=== PATIENT | male | born 1980 | race Caucasian/White ===

== ENCOUNTER 2017-07-17 12:40 | Emergency (ER) | payer BC ==
[2017-07-17 12:51] VITALS: BP 133/82
[2017-07-17] MEDS ORDERED: diphenhydrAMINE 50 MG Cap PO ONE (13:17)
[2017-07-17] MEDS ORDERED: Famotidine 20 MG Tab PO ONE (13:17)
[2017-07-17] MEDS ORDERED: predniSONE 20 MG Tab PO ONE (13:17)
--- NOTE | 2017-07-17 15:22 | CT ---
CT facial Technique: Multiple axial sections were obtained from below the mandible superiorly to above the frontal sinuses. Reconstructed coronal and sagittal images were obtained. Intravenous contrast not utilized. Findings: Mild mucosal thickening is seen within the right maxillary sinus as well as left maxillary sinus. Surgical plate is seen along the inferior orbital wall on the left side. Slight mucosal thickening is seen within the frontal and ethmoid sinuses. No air-fluid levels are seen. Haziness within the right parotid salivary gland is seen. No parotid duct stone is identified. No parotid mass is seen. Submandibular salivary glands are within normal limits. Small normal-appearing lymph nodes are seen. No adenopathy is identified. Impression: 1. Slight increased density within the right parotid salivary gland most likely representing minimal inflammatory change. No salivary duct stone is seen. 2. Minimal areas of mucosal thickening within the sinuses as noted above is which are felt to be incidental. 3. Surgical plate within the inferior left orbit. Diagnostic code #2
--- NOTE | 2017-07-17 15:48 | EDM.PDOC ---
ED HPI GENERAL MEDICAL PROBLEM - General Chief Complaint: ENT Problem Stated Complaint: FACIAL SWELLING POSSIBLE ALLERGIC REACTION Time Seen by Provider: 07/17/17 12:51 Source of Information: Reports: Patient History Limitations: Reports: No Limitations - History of Present Illness INITIAL COMMENTS - FREE TEXT/NARRATIVE: The patient presents with right facial swelling and pain. The patient was just eating a peanut butter sandwich and developed edema and pain to the right parotid gland and in his mouth. He has no shortness of breath or swallowing. He has never had anything like this happen before. He has never reacted to any food before. He developed no rash. He has no chest pain. Onset: Sudden Duration: Minutes: Location: Reports: Face Quality: Reports: Sharp Severity: Moderate Improves with: Reports: None Worsens with: Reports: None Context: Reports: Activity (He was eating a peanut better and jelly sandwich) Associated Symptoms: Reports: No Other Symptoms Right Lower Oral/Mouth Pain Score (Numeric/FACES): 2 - Related Data Allergies Allergy/AdvReac Type Severity Reaction Status Date / Time No Known Allergies Allergy Verified 12/14/16 08:45 Home Meds: Home Meds Albuterol Sulfate [Ventolin Hfa] 2 puff IH Q4H PRN 12/14/16 [History] Esomeprazole Magnesium [Nexium 24Hr] 40 mg PO DAILY 12/14/16 [History] Amoxicillin/Clavulanate K [Augmentin 875 MG/125 MG] 1 tab PO Q12HR #20 tablet [Rx] Past Medical History Respiratory History: Reports: Asthma Gastrointestinal History: Reports: GERD Musculoskeletal History: Reports: Back Pain, Chronic - Past Surgical History HEENT Surgical History: Reports: Eye Surgery GI Surgical History: Reports: Appendectomy Social & Family History - Family History Family Medical History: Noncontributory - Tobacco Use Smoking Status *Q: Never Smoker Years of Tobacco use: 1 Packs/Tins Daily: 0.5 Second Hand Smoke Exposure: No - Caffeine Use Caffeine Use: Reports: Soda - Recreational Drug Use Recreational Drug Use: No ED ROS ENT - Review of Systems Review Of Systems: See Below Constitutional: Reports: No Symptoms HEENT: Reports: Other (Right parotid gland edema) Respiratory: Reports: No Symptoms Cardiovascular: Reports: No Symptoms Endocrine: Reports: No Symptoms GI/Abdominal: Reports: No Symptoms : Reports: No Symptoms Musculoskeletal: Reports: No Symptoms Skin: Reports: No Symptoms ED EXAM, ENT - Physical Exam Exam: See Below Exam Limited By: No Limitations General Appearance: Alert, No Apparent Distress Ears: Normal External Exam Nose: Normal Inspection Mouth/Throat: Other (Edema to the right parotid gland. No erythema. Chaitanya and pain to the right parotid gland.) Head: Atraumatic, Normocephalic Neck: Normal Inspection, Non-Tender Respiratory/Chest: No Respiratory Distress, Lungs Clear, Normal Breath Sounds Cardiovascular: Regular Rate, Rhythm, No Edema, No Murmur GI/Abdominal: Soft, Non-Tender, No Organomegaly, No Mass Back: Normal Inspection Extremities: Normal Inspection Course - Vital Signs Last Recorded V/S: Last Vital Signs Temp 97.5 F 07/17/17 12:47 Pulse 86 07/17/17 12:47 Resp 14 07/17/17 12:47 BP 133/82 07/17/17 12:47 Pulse Ox 98 07/17/17 12:47 - Orders/Labs/Meds Orders: Active Orders 24 hr Category Date Time Status Mandible Comp Min 4V [CR] Stat Exams 07/17/17 13:18 Taken Meds: Medications Discontinued Medications Generic Name Dose Route Start Last Admin Trade Name Freq PRN Reason Stop Dose Admin Diphenhydramine HCl 50 mg 07/17/17 13:17 07/17/17 13:26 Benadryl PO 07/17/17 13:18 50 mg ONETIME ONE Administration Famotidine 20 mg 07/17/17 13:17 07/17/17 13:27 Pepcid PO 07/17/17 13:18 20 mg ONETIME ONE Administration Prednisone 40 mg 07/17/17 13:17 07/17/17 13:26 Prednisone PO 07/17/17 13:18 40 mg ONETIME ONE Administration - Re-Assessments/Exams Free Text/Narrative Re-Assessment/Exam: 07/17/17 15:49 I ordered prednisone 40mg, benadryl 50mg and pepcid 20mg by mouth. I ordered an x-ray of his mandible to look for a stone. I am worried about an allergic reaction or sialoliths. This happened so fast. I ordered a CT of his maxilofacial area and it showed no stone but he had some inflammation of the parotid gland. I will get him on some augmentin for a few days. Departure - Departure Time of Disposition: 15:55 Disposition: Home, Self-Care 01 Condition: Good Clinical Impression: Parotiditis - Discharge Information Prescriptions: Amoxicillin/Clavulanate K [Augmentin 875 MG/125 MG] 1 tab PO Q12HR #20 tablet Referrals: Emilie Anguiano PA [Physician Acid Retort Operator] - 1 Week Additional Instructions: Take the augmentin 2 times per day for 10 days. Put warm compresses on your parotid gland 2 to 3 times per day. Take lemon drops a couple times per day. Take a probiotic like yogurt to avoid diarrhea you may get from taking the antibiotic. Avoid peanut butter for a few days. Please return if you are worse. - My Orders Last 24 Hours: My Active Orders 07/17/17 13:18 Mandible Comp Min 4V [CR] Stat - Assessment/Plan Last 24 Hours: My Active Orders 07/17/17 13:18 Mandible Comp Min 4V [CR] Stat
--- NOTE | 2017-07-18 08:33 | CR ---
Mandible: Five views of the mandible were obtained. No discrete fracture or other bony abnormality is seen. Orbital plate is noted on the left side. Impression: 1. Incidental finding. Diagnostic code #2
== END 2017-07-17 16:08 | disposition home or self-care (01) ==
LOC: JD.ED 12:40
DX: K11.20 Sialoadenitis, unspecified (principal); J45.909 Unspecified asthma, uncomplicated; K21.9 Gastro-esophageal reflux disease without esophagitis; Z90.49 Acquired absence of other specified parts of digestive tract; Z79.899 Other long term (current) drug therapy
CPT/HCPCS: 70110; 70486; 99283; A9270

== ENCOUNTER 2019-01-30 21:46 | Emergency (ER) | payer BC ==
[2019-01-30 22:14] VITALS: BP 130/92
[2019-01-30] MEDS ORDERED: Ketorolac 30 MG/ML SDV IVPUSH ONE (23:33)
[2019-01-30] MEDS ORDERED: HYDROmorphone 1 MG/ML Syringe IVPUSH ONE (23:34)
--- NOTE | 2019-01-30 23:39 | EDM.PDOC ---
ED HPI GENERAL MEDICAL PROBLEM - General Chief Complaint: Chest Pain Stated Complaint: LEFT LOWER RIB CAGE PAIN Time Seen by Provider: 01/30/19 22:12 Source of Information: Reports: Patient History Limitations: Reports: No Limitations - History of Present Illness INITIAL COMMENTS - FREE TEXT/NARRATIVE: The patient presents with left lower chest pain. This started yesterday but over the past few hours it has gotten much worse. He has no shortness of breath with it but it hurts worse to take a deep breath. He has no fever, chills or cough. He was at work when this started. He did not lift or fall or hurt his chest. He does not smoke. He has no history of hypertension, hypercholesterolemia or diabetes. His dad of an enlarged heart at 51. Onset: Gradual Duration: Day(s): Location: Reports: Chest Quality: Reports: Sharp Severity: Moderate Improves with: Reports: Immobilization Worsens with: Reports: Breathing Associated Symptoms: Reports: Chest Pain. Denies: Cough, Fever/Chills, Headaches, Nausea/Vomiting, Shortness of Breath Left Chest Pain Score (Numeric/FACES): 8 - Related Data Allergies Allergy/AdvReac Type Severity Reaction Status Date / Time No Known Allergies Allergy Verified 01/30/19 22:05 Home Meds: Home Meds Albuterol Sulfate [Ventolin Hfa] 2 puff IH Q4H PRN 12/14/16 [History] Esomeprazole Magnesium [Nexium 24Hr] 40 mg PO DAILY 12/14/16 [History] Hydrocodone/Acetaminophen [Hydrocodon-Acetaminophen 5-325] 1 - 2 each PO Q6HR PRN #10 tablet 01/30/19 [Rx] Past Medical History Respiratory History: Reports: Asthma Gastrointestinal History: Reports: GERD Musculoskeletal History: Reports: Back Pain, Chronic - Past Surgical History HEENT Surgical History: Reports: Eye Surgery GI Surgical History: Reports: Appendectomy Social & Family History - Family History Family Medical History: Noncontributory - Tobacco Use Smoking Status *Q: Never Smoker - Caffeine Use Caffeine Use: Reports: None - Recreational Drug Use Recreational Drug Use: No ED ROS GENERAL - Review of Systems Review Of Systems: See Below Constitutional: Reports: No Symptoms HEENT: Reports: No Symptoms Respiratory: Reports: No Symptoms Cardiovascular: Reports: Chest Pain Endocrine: Reports: No Symptoms GI/Abdominal: Reports: No Symptoms : Reports: No Symptoms Musculoskeletal: Reports: No Symptoms ED EXAM, GENERAL - Physical Exam Exam: See Below Exam Limited By: No Limitations General Appearance: Alert, No Apparent Distress Ears: Normal External Exam Nose: Normal Inspection Head: Atraumatic, Normocephalic Neck: Normal Inspection Respiratory/Chest: No Respiratory Distress, Lungs Clear, Normal Breath Sounds Cardiovascular: Regular Rate, Rhythm, No Edema, No Murmur, Other (Pain upon palpation to the left lower chest) GI/Abdominal: Soft, Non-Tender, No Organomegaly, No Mass Extremities: Normal Inspection Neurological: Alert, Oriented, No Motor/Sensory Deficits EKG INTERPRETATION EKG Date: 01/30/19 Time: 22:12 Rhythm: NSR Rate (Beats/Min): 79 [place] [facility]: Normal P-Wave: Present QRS: Normal ST-T: Other (Flattened T waves in the anteriolateral leads) QT: Normal Course - Vital Signs Last Recorded V/S: Last Vital Signs Temp 97.4 F 01/30/19 22:07 Pulse 82 01/30/19 22:07 Resp 20 01/30/19 22:07 BP 130/92 H 01/30/19 22:07 Pulse Ox 98 01/30/19 22:07 - Orders/Labs/Meds Orders: Active Orders 24 hr Category Date Time Status EKG Documentation Completion [RC] STAT Care 01/30/19 22:10 Active Chest 2V [CR] Stat Exams 01/30/19 22:10 Taken HYDROmorphone [Dilaudid] Med 01/30/19 23:34 Once 0.5 mg IVPUSH ONETIME ONE Ketorolac [Toradol] Med 01/30/19 23:33 Once 30 mg IVPUSH ONETIME ONE Medication Orders Hydromorphone HCl (Dilaudid) 0.5 mg IVPUSH ONETIME ONE Stop: 01/30/19 23:35 Ketorolac Tromethamine (Toradol) 30 mg IVPUSH ONETIME ONE Stop: 01/30/19 23:34 Labs: Laboratory Tests 01/30/19 01/30/19 01/30/19 Range/Units 22:29 22:29 22:29 WBC 12.12 H (4.23-9.07) K/mm3 RBC 5.45 (4.63-6.08) M/mm3 Hgb 14.9 (13.7-17.5) gm/L Hct 44.3 (40.1-51.0) % MCV 81.3 (79.0-92.2) fl MCH 27.3 (25.7-32.2) pg MCHC 33.6 (32.2-35.5) g/dl RDW Std Deviation 39.8 (35.1-43.9) fL Plt Count 255 (163-337) K/mm3 MPV 11.7 (9.4-12.3) fl Neut % (Auto) 61.7 (34.0-67.9) % Lymph % (Auto) 26.5 (21.8-53.1) % Barren % (Auto) 8.7 (5.3-12.2) % Eos % (Auto) 2.6 (0.8-7.0) Baso % (Auto) 0.3 (0.1-1.2) % Neut # (Auto) 7.49 H (1.78-5.38) K/mm3 Lymph # (Auto) 3.21 (1.32-3.57) K/mm3 Barren # (Auto) 1.05 H (0.30-0.82) K/mm3 Eos # (Auto) 0.31 (0.04-0.54) K/mm3 Baso # (Auto) 0.04 (0.01-0.08) K/mm3 D-Dimer, Quantitative 0.23 (0.19-0.50) mg/L Sodium 140 (136-145) mEq/L Potassium 3.7 (3.5-5.1) mEq/L Chloride 104 (98-107) mEq/L Carbon Dioxide 28 (21-32) mEq/L Anion Gap 11.7 (5-15) BUN 12 (7-18) mg/dL Creatinine 1.0 (0.7-1.3) mg/dL Est Cr Clr Drug Dosing 102.40 mL/min Estimated GFR (MDRD) > 60 (>60) mL/min BUN/Creatinine Ratio 12.0 L (14-18) Glucose 107 H (74-106) mg/dL Calcium 9.2 (8.5-10.1) mg/dL Total Bilirubin 0.3 (0.2-1.0) mg/dL AST 19 (15-37) U/L ALT 54 (16-63) U/L Alkaline Phosphatase 85 (46-116) U/L Troponin I < 0.017 (0.00-0.056) ng/mL Total Protein 7.5 (6.4-8.2) g/dl Albumin 3.8 (3.4-5.0) g/dl Globulin 3.7 gm/dL Albumin/Globulin Ratio 1.0 (1-2) Meds: Medications Generic Name Dose Route Start Last Admin Trade Name Rachel PRN Reason Stop Dose Admin Hydromorphone HCl 0.5 mg 01/30/19 23:34 Dilaudid IVPUSH 01/30/19 23:35 ONETIME ONE Ketorolac Tromethamine 30 mg 01/30/19 23:33 Toradol IVPUSH 01/30/19 23:34 ONETIME ONE - Re-Assessments/Exams Free Text/Narrative Re-Assessment/Exam: 01/30/19 23:38 I ordered an IV saline lock, EKG, CXR, and labs. His EKG shows a NSR with some flattened T waves in the anterolateral leads. His CXR looks good. His CBC and CMP look good. His D-dimer was negative along with his troponin. 01/30/19 23:39 He is point tender on his chest. I gave him some toradol and dilaudid. I will discharge him home. Departure - Departure Time of Disposition: 23:40 Disposition: Home, Self-Care 01 Condition: Good Clinical Impression: Chest wall pain Prescriptions: Hydrocodone/Acetaminophen [Hydrocodon-Acetaminophen 5-325] 1 - 2 each PO Q6HR PRN #10 tablet PRN Reason: Pain Referrals: PCP,None [Primary Care Provider] - July Baugh PA-C [Physician Chief Executive Officer] - 1 Week Additional Instructions: Take motrin or aleve for pain. If that does not help try the hydrocodone. Please return if you are worse. - My Orders Last 24 Hours: My Active Orders 01/30/19 23:33 Ketorolac [Toradol] 30 mg IVPUSH ONETIME ONE 01/30/19 23:34 HYDROmorphone [Dilaudid] 0.5 mg IVPUSH ONETIME ONE - Assessment/Plan Last 24 Hours: My Active Orders 01/30/19 23:33 Ketorolac [Toradol] 30 mg IVPUSH ONETIME ONE 01/30/19 23:34 HYDROmorphone [Dilaudid] 0.5 mg IVPUSH ONETIME ONE
--- NOTE | 2019-01-31 06:55 | CR ---
Chest: Two views of the chest were obtained. Comparison: Prior chest x-ray is not available. Heart size and mediastinum are normal. Lungs are clear. Bony structures appear within normal limits for the patient's age. Impression: 1. Nothing acute is seen on two-view chest x-ray. Diagnostic code #1
== END 2019-01-30 23:53 | disposition home or self-care (01) ==
LOC: JD.ED 21:46
DX: R07.89 Other chest pain (principal); J45.909 Unspecified asthma, uncomplicated; K21.9 Gastro-esophageal reflux disease without esophagitis; Z79.899 Other long term (current) drug therapy
CPT/HCPCS: 36415; 71046; 80053; 84484; 85025; 85379; 93005; 96374; 96375; 99285; J1170; J1885; 93010; 99284

== ENCOUNTER 2019-10-19 21:43 | Emergency (ER) | payer BC ==
[2019-10-19 21:53] VITALS: BP 137/86; PULSE 104
[2019-10-19] MEDS ORDERED: Sodium Chloride 0.9% 1,000 ML IV ONE (22:34)
--- NOTE | 2019-10-19 22:45 | EDM.PDOC ---
ED HPI GENERAL MEDICAL PROBLEM - General Chief Complaint: Eye Problems Stated Complaint: EYE PROBLEM Time Seen by Provider: 10/19/19 22:24 Source of Information: Reports: Patient, RN Notes Reviewed History Limitations: Reports: No Limitations - History of Present Illness INITIAL COMMENTS - FREE TEXT/NARRATIVE: Patient is a 39-year-old male who presents to the ED for evaluation of a chemical splash into his right eye. Patient notes that roughly 1 hour ago he got some chemical splash into his right eye while he was cleaning the ceiling in his shop at home. This chemical is a mold cleaner called awesome, he did bring the bottle with him for evaluation. He notes that he did rinse his eye out for around 20 minutes with tap water, but states he was still having a burning feeling to the right eye, and he is unable to keep the eye open much at all. Patient notes he does not wear contacts nor glasses. Right Eye Pain Score (Numeric/FACES): 8 - Related Data Allergies Allergy/AdvReac Type Severity Reaction Status Date / Time No Known Allergies Allergy Verified 10/19/19 21:49 Home Meds: Home Meds Esomeprazole Magnesium [Nexium 24Hr] 40 mg PO DAILY 12/14/16 [History] Albuterol [Proventil HFA] 2 puff INH Q4H PRN #1 inhaler 01/31/19 [Rx] Albuterol Sulfate [Proair Hfa] 8.5 gm IH QID #1 hfa.[email or web address].[email or web address] 10/19/19 [Rx] Past Medical History Respiratory History: Reports: Asthma Gastrointestinal History: Reports: GERD Musculoskeletal History: Reports: Back Pain, Chronic - Past Surgical History HEENT Surgical History: Reports: Eye Surgery GI Surgical History: Reports: Appendectomy Social & Family History - Family History Family Medical History: Noncontributory - Tobacco Use Smoking Status *Q: Never Smoker - Caffeine Use Caffeine Use: Reports: None ED ROS GENERAL - Review of Systems Review Of Systems: Comprehensive ROS is negative, except as noted in HPI. HEENT: Reports: Eye Pain. Denies: Eye Discharge ED EXAM GENERAL W FULL EYE - Physical Exam Exam: See Below Exam Limited By: No Limitations General Appearance: Alert, WD/WN, No Apparent Distress Eye Exam: Right Eye: Conjunctival Injection, Left Eye: Normal Inspection, Bilateral Eye: EOMI, PERRL With Correction: No Eyelids: Bilateral: Normal Appearance Conjunctiva & Sclera: Right: Injected, Left: Normal Appearance Cornea Exam: Right: Corneal Abrasion (to the inner lower half of the eye.), Examined with Flourescein, Left: Normal Appearance Extraocular Movements: Bilateral: Intact Pupils: Normal Accommodation Pupillary Size: Bilateral: 3 mm Pupillary Reaction: Bilateral: Brisk Comments: eye pH was taken before irrigation was started. This was between 7-8. Respiratory/Chest: No Respiratory Distress, Lungs Clear, Normal Breath Sounds, No Accessory Muscle Use, Chest Non-Tender Cardiovascular: Normal Peripheral Pulses, Regular Rate, Rhythm, No Murmur Neurological: Alert, Oriented, Normal Cognition, No Motor/Sensory Deficits Psychiatric: Normal Affect, Normal Mood Skin Exam: Warm, Dry, Intact, Normal Color, No Rash Course - Vital Signs Last Recorded V/S: Last Vital Signs Temp 98.0 F 10/19/19 21:50 Pulse 104 H 10/19/19 21:50 Resp 16 10/19/19 21:50 BP 137/86 10/19/19 21:50 Pulse Ox 97 10/19/19 21:50 - Orders/Labs/Meds Orders: Active Orders 24 hr Category Date Time Status Eye Irrigation [RC] ASDIRECTED Care 10/19/19 22:33 Ordered Sodium Chloride 0.9% [Normal Saline] 1,000 ml Med 10/19/19 22:34 Ordered IV ONETIME Medication Orders Sodium Chloride (Normal Saline) 1,000 mls @ 999 mls/hr IV ONETIME ONE Stop: 10/19/19 23:34 Meds: Medications Generic Name Dose Route Start Last Admin Trade Name Freq PRN Reason Stop Dose Admin Sodium Chloride 1,000 mls @ 999 mls/hr 10/19/19 22:34 Normal Saline IV 10/19/19 23:34 ONETIME ONE Discontinued Medications Generic Name Dose Route Start Last Admin Trade Name Freq PRN Reason Stop Dose Admin Ciprofloxacin 1 ml 10/19/19 22:59 Ciloxan 0.3% Ophth Soln EYERT 10/19/19 23:00 Q4H ONE Fluorescein Sodium 1 mg 10/19/19 22:54 Ful-Sarah EYERT 10/19/19 22:55 ONETIME ONE - Re-Assessments/Exams Free Text/Narrative Re-Assessment/Exam: 10/19/19 22:44 Patient presents to the ED for evaluation of a chemical splash to his right eye. The chemical he brought with him contains 2 Butoxy ethanol. I did call poison control, and they did recommend flushing the eye with a liter of fluids, doing a fluorescein exam to evaluate for corneal abrasion, and sending him home with antibiotics if needed and close follow-up with optometry. 10/19/19 22:53 Nurse states that the patient only let her irrigate with 100mLs of fluid before he had her stop. I will examine with flourescein for abrasions. Departure - Departure Time of Disposition: 23:13 Disposition: Home, Self-Care 01 Condition: Fair Clinical Impression: Chemical burn due to acid, conjunctiva, right Corneal abrasion Qualifiers: Encounter type: initial encounter Laterality: right Qualified Code(s): S05.01XA - Injury of conjunctiva and corneal abrasion without foreign body, right eye, initial encounter - Discharge Information *PRESCRIPTION DRUG MONITORING PROGRAM REVIEWED*: No *COPY OF PRESCRIPTION DRUG MONITORING REPORT IN PATIENT NUNU: No Instructions: Chemical Conjunctivitis, Adult, Corneal Abrasion, [id number] Referrals: PCP,None [Primary Care Provider] - Forms: ED Department Discharge Additional Instructions: You were evaluated in the ER today regarding the chemical splash in your right eye. Irrigation was attempted, but was stopped shortly after it was started. Your pH was back to normal. You were found to have corneal abrasions as well, please use the ciprofloxacin drops, 1 to 2 drops every 4 hours for the next few days. Recommend that you have a close follow-up with optometry on Monday morning. This would be to reevaluate your eyes, and make sure you do not have any sort of visual loss. You may take some ibuprofen or Tylenol for further pain relief. Please return to the ER if symptoms change or worsen. Sepsis Event Note - Evaluation Sepsis Screening Result: No Definite Risk - Focused Exam Vital Signs: Vital Signs Temp Pulse Resp BP Pulse Ox 10/19/19 21:50 98.0 F 104 H 16 137/86 97 Date Exam was Performed: 10/19/19 Time Exam was Performed: 23:13 - My Orders Last 24 Hours: My Active Orders 10/19/19 22:33 Eye Irrigation [RC] ASDIRECTED 10/19/19 22:34 Sodium Chloride 0.9% [Normal Saline] 1,000 ml IV ONETIME - Assessment/Plan Last 24 Hours: My Active Orders 10/19/19 22:33 Eye Irrigation [RC] ASDIRECTED 10/19/19 22:34 Sodium Chloride 0.9% [Normal Saline] 1,000 ml IV ONETIME
[2019-10-19] MEDS ORDERED: Fluorescein 1 MG Ophth Strip EYERT ONE (22:54)
[2019-10-19] MEDS ORDERED: Ciprofloxacin 0.3% Ophth Soln 5 ML Bottle EYERT ONE (22:59)
== END 2019-10-19 23:24 | disposition home or self-care (01) ==
LOC: JD.ED 21:43
DX: T65.891A Toxic effect of other specified substances, accidental (unintentional), initial encounter (principal); T26.61XA Corrosion of cornea and conjunctival sac, right eye, initial encounter; S05.01XA Injury of conjunctiva and corneal abrasion without foreign body, right eye, initial encounter; J45.909 Unspecified asthma, uncomplicated; Z79.899 Other long term (current) drug therapy; Y93.E9 Activity, other interior property and clothing maintenance; Y92.513 Shop (commercial) as the place of occurrence of the external cause
CPT/HCPCS: 99283; A9270; J7030

== ENCOUNTER 2019-12-01 10:41 | Emergency (ER) | payer BC ==
[2019-12-01 10:59] VITALS: BP 129/86; PULSE 71
[2019-12-01] MEDS ORDERED: Sodium Chloride 0.9% 10 ML Syringe FLUSH PRN (11:04)
[2019-12-01] MEDS ORDERED: Ketorolac 30 MG/ML SDV IVPUSH ONE (11:04)
[2019-12-01] MEDS ORDERED: Sodium Chloride 0.9% 1,000 ML IV ONE (11:05)
--- NOTE | 2019-12-01 11:09 | EDM.PDOC ---
ED HPI GENERAL MEDICAL PROBLEM - General Chief Complaint: Back Pain or Injury Stated Complaint: BACK PAIN AND DIFFICULTY URINATING Time Seen by Provider: 12/01/19 10:58 Source of Information: Reports: Patient History Limitations: Reports: No Limitations - History of Present Illness INITIAL COMMENTS - FREE TEXT/NARRATIVE: Patient is an unfortunate 39-year-old male who presents emergency Department today with complaint of left low back pain. Patient reports she was in his normal state of health until approximately 30 minutes prior to arrival when he started having sharp stabbing low left back pain that radiates left lower quadrant of his abdomen. Patient reports this pain is similar to previous episodes of kidney stones. No nausea no vomiting no fever no chills no chest pain no cough no congestion no runny nose Left Lower Back Pain Score (Numeric/FACES): 7 - Related Data Allergies Allergy/AdvReac Type Severity Reaction Status Date / Time No Known Allergies Allergy Verified 12/01/19 10:59 Home Meds: Home Meds Esomeprazole Magnesium [Nexium 24Hr] 40 mg PO DAILY 12/14/16 [History] Albuterol [Proventil HFA] 2 puff INH Q4H PRN #1 inhaler 01/31/19 [Rx] Acetaminophen with Codeine [Tylenol with Codeine #3 Tablet] 1 each PO Q4H PRN # 20 tablet 12/01/19 [Rx] Past Medical History Respiratory History: Reports: Asthma Gastrointestinal History: Reports: GERD Musculoskeletal History: Reports: Back Pain, Chronic - Past Surgical History HEENT Surgical History: Reports: Eye Surgery GI Surgical History: Reports: Appendectomy Social & Family History - Family History Family Medical History: Noncontributory - Tobacco Use Smoking Status *Q: Never Smoker - Caffeine Use Caffeine Use: Reports: Soda - Recreational Drug Use Recreational Drug Use: No ED ROS GENERAL - Review of Systems Review Of Systems: See Below Constitutional: Denies: Fever, Chills GI/Abdominal: Reports: Abdominal Pain. Denies: Hematochezia, Nausea, Vomiting Musculoskeletal: Reports: Back Pain ED EXAM,LOWER BACK PAIN/INJURY - Physical Exam Exam: See Below Exam Limited By: No Limitations General Appearance: Alert, WD/WN, Mild Distress Throat/Mouth: Normal Inspection, Normal Lips, Normal Teeth, Normal Gums, Normal Oropharynx, Normal Voice, No Airway Compromise Head: Atraumatic, Normocephalic Neck: Normal Inspection, Supple, Non-Tender, Full Range of Motion Respiratory/Chest: No Respiratory Distress, Lungs Clear, Normal Breath Sounds, No Accessory Muscle Use, Chest Non-Tender Cardiovascular: Normal Peripheral Pulses, Regular Rate, Rhythm, No Edema, No Gallop, No JVD, No Murmur, No Rub GI/Abdominal: Normal Bowel Sounds, Soft, Tender (mild Left lower quadrant) Back Exam: Normal Inspection, Full Range of Motion, NT Extremities: Normal Inspection, Normal Range of Motion, Non-Tender, No Pedal Edema, Normal Capillary Refill Neurological: Alert Skin Exam: Warm, Dry Course - Vital Signs Last Recorded V/S: Last Vital Signs Temp 97.1 F 12/01/19 10:52 Pulse 71 12/01/19 10:52 Resp 20 12/01/19 10:52 BP 129/86 12/01/19 10:52 Pulse Ox - Orders/Labs/Meds Orders: Active Orders 24 hr Category Date Time Status Sodium Chloride 0.9% [Saline Flush] Med 12/01/19 11:04 Active 10 ml FLUSH ASDIRECTED PRN Saline Lock Insert [OM.PC] Stat Oth 12/01/19 11:04 Ordered Medication Orders Sodium Chloride (Saline Flush) 10 ml FLUSH ASDIRECTED PRN PRN Reason: Keep Vein Open Last Admin: 12/01/19 11:14 Dose: 10 ml Labs: Laboratory Tests 12/01/19 12/01/19 12/01/19 Range/Units 11:00 11:00 11:15 WBC 9.21 H (4.23-9.07) K/mm3 RBC 5.65 (4.63-6.08) M/mm3 Hgb 15.8 (13.7-17.5) gm/dl Hct 46.1 (40.1-51.0) % MCV 81.6 (79.0-92.2) fl MCH 28.0 (25.7-32.2) pg MCHC 34.3 (32.2-35.5) g/dl RDW Std Deviation 39.2 (35.1-43.9) fL Plt Count 289 (163-337) K/mm3 MPV 11.7 (9.4-12.3) fl Neut % (Auto) 56.6 (34.0-67.9) % Lymph % (Auto) 32.1 (21.8-53.1) % [place] % (Auto) 7.9 (5.3-12.2) % Eos % (Auto) 2.9 (0.8-7.0) Baso % (Auto) 0.4 (0.1-1.2) % Neut # (Auto) 5.20 (1.78-5.38) K/mm3 Lymph # (Auto) 2.96 (1.32-3.57) K/mm3 [place] # (Auto) 0.73 (0.30-0.82) K/mm3 Eos # (Auto) 0.27 (0.04-0.54) K/mm3 Baso # (Auto) 0.04 (0.01-0.08) K/mm3 Sodium 141 (136-145) mEq/L Potassium 3.7 (3.5-5.1) mEq/L Chloride 104 (98-107) mEq/L Carbon Dioxide 25 (21-32) mEq/L Anion Gap 15.7 H (5-15) BUN 12 (7-18) mg/dL Creatinine 1.0 (0.7-1.3) mg/dL Est Cr Clr Drug Dosing 104.02 mL/min Estimated GFR (MDRD) > 60 (>60) mL/min BUN/Creatinine Ratio 12.0 L (14-18) Glucose 105 (74-106) mg/dL Calcium 8.8 (8.5-10.1) mg/dL Urine Color Yellow (Yellow) Urine Appearance Slt cloudy H (Clear) Urine pH 6.0 (5.0-8.0) Ur Specific [place] > or = 1.030 (1.005-1.030) Urine Protein 1+ H (Negative) Urine Glucose (UA) Negative (Negative) Urine Ketones Negative (Negative) Urine Occult Blood 3+ H (Negative) Urine Nitrite Negative (Negative) Urine Bilirubin Negative (Negative) Urine Urobilinogen 0.2 (0.2-1.0) Ur Leukocyte Esterase Negative (Negative) Urine RBC 40-50 H (0-5) /hpf Urine WBC 0-5 (0-5) /hpf Ur Squamous Epith Cells 0-5 (0-5) /hpf Urine Bacteria Few (FEW) /hpf Urine Mucus Moderate H (FEW) /hpf Meds: Medications Generic Name Dose Route Start Last Admin Trade Name Rachel PRN Reason Stop Dose Admin Sodium Chloride 10 ml 12/01/19 11:04 12/01/19 11:14 Saline Flush FLUSH 10 ml ASDIRECTED PRN Administration Keep Vein Open Discontinued Medications Generic Name Dose Route Start Last Admin Trade Name Rachel PRN Reason Stop Dose Admin Sodium Chloride 1,000 mls @ 1,000 mls/hr 12/01/19 11:05 12/01/19 11:15 Normal Saline IV 12/01/19 12:04 1,000 mls/hr ONETIME ONE Administration Ketorolac Tromethamine 30 mg 12/01/19 11:04 12/01/19 11:14 Toradol IVPUSH 12/01/19 11:05 30 mg ONETIME ONE Administration - Re-Assessments/Exams Free Text/Narrative Re-Assessment/Exam: 12/01/19 13:08 The nurse brought the urine sample to look at which showed a possible stone in the urine, CT abdomen and pelvis shows "impression: Number 13.07 meters cyst within the left kidney. #2 no renal calculi, ureteral dilatation or ureteral stone is seen. #3 fatty infiltration within the liver. Number for other findings as noted above. Nothing acute is appreciated on noncontrast CT study of the abdomen and pelvis." Departure - Departure Time of Disposition: 13:09 Disposition: Home, Self-Care 01 Condition: Good Clinical Impression: Renal colic, Ureterolithiasis - Discharge Information *PRESCRIPTION DRUG MONITORING PROGRAM REVIEWED*: Yes *COPY OF PRESCRIPTION DRUG MONITORING REPORT IN PATIENT NUNU: No Prescriptions: Acetaminophen with Codeine [Tylenol with Codeine #3 Tablet] 1 each PO Q4H PRN # 20 tablet PRN Reason: Pain Referrals: PCP,None [Primary Care Provider] - Forms: ED Department Discharge Additional Instructions: Home, rest, return as needed for worsening condition Sepsis Event Note - Evaluation Sepsis Screening Result: No Definite Risk - Focused Exam Vital Signs: Vital Signs Temp Pulse Resp BP 12/01/19 10:52 97.1 F 71 20 129/86 Date Exam was Performed: 12/01/19 Time Exam was Performed: 13:08 - My Orders Last 24 Hours: My Active Orders 12/01/19 11:04 Sodium Chloride 0.9% [Saline Flush] 10 ml FLUSH ASDIRECTED PRN Saline Lock Insert [OM.PC] Stat - Assessment/Plan Last 24 Hours: My Active Orders 12/01/19 11:04 Sodium Chloride 0.9% [Saline Flush] 10 ml FLUSH ASDIRECTED PRN Saline Lock Insert [OM.PC] Stat
--- NOTE | 2019-12-01 12:51 | CT ---
CT abdomen and pelvis Technique: Multiple axial sections were obtained from above the dome of the diaphragm inferiorly through the pubic symphysis. Intravenous and oral contrast not utilized. Study has been performed as a ureteral stone protocol. Findings: Cyst is noted within the left kidney measuring approximately 3.0 cm in size. Kidneys show no abnormal calcifications. No ureteral dilatation or ureteral stone is seen. Other findings: Visualized lung bases show nothing acute. Fatty infiltration is seen within the liver. No other focal abnormality appreciated within the liver. Spleen appears within normal limits. Adrenal glands show no nodule. Pancreas shows no discrete abnormality. Gallbladder is collapsed but shows no calcified gallstones. Aorta shows no aneurysm. No retroperitoneal adenopathy or mesenteric abnormalities are seen. No pelvic mass or adenopathy is seen. Fat-containing inguinal hernias are noted. Appendix is not visualized with certainty. No bowel dilatation is seen. No free fluid or inflammatory change is noted. Impression: 1. 3.0 cm cyst within the left kidney. 2. No renal calculi, ureteral dilatation or ureteral stone is seen. 3. Fatty infiltration within the liver. 4. Other findings as noted above. Nothing acute is appreciated on noncontrast CT study of the abdomen and pelvis. Diagnostic code #2 Study was dictated in [place] Standard Time
== END 2019-12-01 13:35 | disposition home or self-care (01) ==
LOC: JD.ED 10:41
DX: N13.2 Hydronephrosis with renal and ureteral calculous obstruction (principal); J45.909 Unspecified asthma, uncomplicated; K21.9 Gastro-esophageal reflux disease without esophagitis; Z79.899 Other long term (current) drug therapy
CPT/HCPCS: 36415; 74176; 80048; 81001; 85025; 96361; 96374; 99284; J1885; J7030

== ENCOUNTER 2019-12-29 00:28 | Emergency (ER) | payer BC ==
[2019-12-29 00:44] VITALS: BP 123/85; PULSE 96
[2019-12-29] MEDS ORDERED: Orphenadrine 100 MG Tab.ER PO STA (02:48)
[2019-12-29] MEDS ORDERED: Ibuprofen 600 MG Tab PO ONE (02:48)
--- NOTE | 2019-12-29 03:00 | EDM.PDOC ---
ED HPI GENERAL MEDICAL PROBLEM - General Chief Complaint: Chest Pain Stated Complaint: CHEST PAIN AND SWELLING/HARD AND HOT Time Seen by Provider: 12/29/19 02:36 Source of Information: Reports: Patient History Limitations: Reports: No Limitations - History of Present Illness INITIAL COMMENTS - FREE TEXT/NARRATIVE: Mr. Acevedo is a most pleasant 39-year-old man with a past medical history significant for PFT-confirmed asthma, GERD, obesity, and chronic back pain, who now presents to the ED stating that he developed left-sided chest pain - he points with one finger inferior to his left breast - about 15 minutes prior to arrival to the ED. He denies any injury to the area, but acknowledges that it is possible that he could have strained it. When he initially noticed it, he thought he felt a swelling in the area along with warmth, although he no longer feels that. No associated symptoms, such as dyspnea, diaphoresis, nausea, or sense of impending doom. No prior similar symptoms. The patient did not take any [id number] or home remedies prior to coming to the ED. The patient denies recent fever, chills, cough, dyspnea, chest pain, palpitations, nausea, vomiting, constipation, diarrhea, abdominal pain, urinary symptoms, recent weight gain or weight loss, recent bloody bowel movements or black bowel movements, recent joint aches, headaches, or rashes. The patient does not have a PCP. He did not receive an influenza vaccine this season, and declined an offer to receive one here today. Left Upper Chest Pain Score (Numeric/FACES): 4 - Related Data Allergies Allergy/AdvReac Type Severity Reaction Status Date / Time No Known Allergies Allergy Verified 12/29/19 00:44 Home Meds: Home Meds Esomeprazole Magnesium [Nexium 24Hr] 40 mg PO DAILY 12/14/16 [History] Albuterol [Proventil HFA] 2 puff INH Q4H PRN #1 inhaler 01/31/19 [Rx] Orphenadrine [Norflex] 1 tab PO Q12H PRN #14 tab.er 12/29/19 [Rx] Past Medical History Respiratory History: Reports: Asthma (PFT-proven) Gastrointestinal History: Reports: GERD Endocrine/Metabolic History: Reports: Obesity/BMI 30+ - Past Surgical History HEENT Surgical History: Reports: Oral Surgery (wisdom teeth extraction), Other ( See Below) (Facial reconstruction) GI Surgical History: Reports: Appendectomy Musculoskeletal Surgical History: 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 Musculoskeletal: Reports: Back Pain ED EXAM, GENERAL - Physical Exam Exam: See Below Exam Limited By: No Limitations General Appearance: Alert, WD/WN, No Apparent Distress Eye Exam: Bilateral Eye: EOMI, Normal Inspection Ears: Normal External Exam, Hearing Grossly Normal Nose: Normal Inspection Throat/Mouth: Normal Inspection, Normal Lips, Normal Voice, No Airway Compromise Head: Atraumatic, Normocephalic Neck: Normal Inspection, Full Range of Motion Respiratory/Chest: No Respiratory Distress, Lungs Clear, Normal Breath Sounds, No Accessory Muscle Use, Other (Reproducible tenderness to a discrete area immediately inferior to his left breast. No visible or palpable abnormality at this area, and no increased calor. Nontender elsewhere on the chest.) Cardiovascular: Normal Peripheral Pulses, Regular Rate, Rhythm, No Edema, No Gallop, No JVD, No Murmur, No Rub Peripheral Pulses: 4+: Radial (L), Radial (R) GI/Abdominal: Normal Bowel Sounds, Soft, Non-Tender, No Organomegaly, No Distention, No Abnormal Bruit, No Mass (Male) Exam: Deferred Rectal (Males) Exam: Deferred Back Exam: Normal Inspection, Full Range of Motion, NT Extremities: Normal Inspection, Normal Range of Motion, No Pedal Edema, Normal Capillary Refill Neurological: Alert, Oriented, Normal Cognition, No Motor/Sensory Deficits Psychiatric: Normal Affect Skin Exam: Warm, Dry, Intact, Normal Color, No Rash Course - Vital Signs Last Recorded V/S: Last Vital Signs Temp 36.4 C 12/29/19 00:38 Pulse 96 12/29/19 00:38 Resp 20 12/29/19 00:38 BP 123/85 12/29/19 00:38 Pulse Ox 96 12/29/19 00:38 - Orders/Labs/Meds Orders: Active Orders 24 hr Category Date Time Status Chest 2V [CR] Stat Exams 12/29/19 02:47 Taken Meds: Medications Discontinued Medications Generic Name Dose Route Start Last Admin Trade Name Alfonzoq PRN Reason Stop Dose Admin Ibuprofen 600 mg 12/29/19 02:48 12/29/19 02:59 Motrin PO 12/29/19 02:49 600 mg ONETIME ONE Administration Orphenadrine Citrate 100 mg 12/29/19 02:48 12/29/19 03:01 Norflex PO 12/29/19 02:49 100 mg ONETIME STA Administration - Re-Assessments/Exams Free Text/Narrative Re-Assessment/Exam: 12/29/19 02:49 As above, the patient has a discrete area of tenderness inferior to his left breast. The patient initially felt a lump there; I do not at this time, nor do I feel any calor, but the tenderness remains. It is almost certainly due to a muscle spasm, but I have ordered a chest x-ray just to make sure that there is no anatomic abnormality. In the meantime, I will start the patient on oral Norflex and oral ibuprofen. 12/29/19 03:19 Two-view chest radiograph appears to be grossly normal. The cardiac silhouette is within normal limits. No pulmonary vascular congestion. No pleural effusions. No focal infiltrate. No pneumothorax. Formal read per the Radiologist pending. 12/29/19 03:22 X-ray results discussed with the patient. As above, I suspect the patient is suffering from a muscle spasm. I will submit a prescription for Norflex, that he can take along with ibuprofen. He should feel much better within a couple of days. Departure - Departure Time of Disposition: 03:22 Disposition: Home, Self-Care 01 Condition: Good Clinical Impression: Chest wall muscle strain - Discharge Information *PRESCRIPTION DRUG MONITORING PROGRAM REVIEWED*: Not Applicable *COPY OF PRESCRIPTION DRUG MONITORING REPORT IN PATIENT NUNU: Not Applicable Prescriptions: Orphenadrine [Norflex] 1 tab PO Q12H PRN #14 tab.er PRN Reason: Muscle Spasm Instructions: Chest Wall Pain, [id number], Muscle Strain Referrals: PCP,None [Primary Care Provider] - Forms: ED Department Discharge Additional Instructions: You were seen in the emergency room for left-sided chest pain developed shortly prior to coming to the ER. Work-up in the ER included a chest x-ray, which returned normal. You do not have a collapsed lung or pneumonia. Based on your history, physical exam, and chest x-ray, the cause of your chest pain is most likely a muscle spasm. You have been started on the muscle relaxant Norflex, and a prescription for Norflex has been sent to the [facility], located just south and across [address] from [facility]. Take 1 tablet of Norflex every 12 hours, as prescribed. Norflex works best if you take it along with [id number] ibuprofen, 3 tablets (600 mg) every 8 hours, with food, as needed for discomfort. If any other problems, please do not hesitate to return to the ER. Sepsis Event Note - Evaluation Sepsis Screening Result: No Definite Risk - Focused Exam Date Exam was Performed: 12/29/19 Time Exam was Performed: 21:26 - My Orders Last 24 Hours: My Active Orders 12/29/19 02:47 Chest 2V [CR] Stat - Assessment/Plan Last 24 Hours: My Active Orders 12/29/19 02:47 Chest 2V [CR] Stat
--- NOTE | 2019-12-30 06:45 | CR ---
Chest: Two views of the chest were obtained. Comparison: Prior chest x-ray of 01/30/19. Heart size and mediastinum are normal. Lungs are clear with no acute parenchymal change. Bony structures appear within normal limits. Impression: 1. Nothing acute is appreciated on two-view chest x-ray. Diagnostic code #1 This report was dictated in [place] Standard Time
== END 2019-12-29 03:31 | disposition home or self-care (01) ==
LOC: JD.ED 00:28
DX: S29.011A Strain of muscle and tendon of front wall of thorax, initial encounter (principal); K21.9 Gastro-esophageal reflux disease without esophagitis; J45.909 Unspecified asthma, uncomplicated; E66.9 Obesity, unspecified; Z68.38 Body mass index [BMI] 38.0-38.9, adult; Z79.899 Other long term (current) drug therapy; X58.XXXA Exposure to other specified factors, initial encounter
CPT/HCPCS: 71046; 99284; A9270; 99283

== ENCOUNTER 2023-06-22 23:26 | Emergency (ER) | payer BC ==
[2023-06-23] MEDS ORDERED: Lidocaine 1% 10 ML MDV INJECT ONE (00:40)
[2023-06-23] MEDS ORDERED: Ketorolac 30 MG/ML SDV IVPUSH ONE (01:27)
[2023-06-23] MEDS ORDERED: Naloxone 0.4 MG/ML SDV IVPUSH PRN (01:28)
[2023-06-23] MEDS ORDERED: Morphine 4 MG/ML Syringe IM ONE (01:28)
[2023-06-23] MEDS ORDERED: Acetaminophen 325 MG Tab PO ONE (01:30)
[2023-06-23] MEDS ORDERED: Ketorolac 60 MG/2 ML SDV IM ONE (01:33)
[2023-06-23 01:54] VITALS: BP 149/92; PULSE 85
== END 2023-06-23 01:55 | disposition home or self-care (01) ==
LOC: JD.ED 23:26
DX: K02.9 Dental caries, unspecified (principal); J45.909 Unspecified asthma, uncomplicated; K21.9 Gastro-esophageal reflux disease without esophagitis; E66.9 Obesity, unspecified; Z79.51 Long term (current) use of inhaled steroids; Z79.899 Other long term (current) drug therapy
CPT/HCPCS: 96372; 96374; 99282; A9270; J1885; J2270

== ENCOUNTER 2023-06-24 01:58 | Emergency (ER) | payer BC ==
[2023-06-24] MEDS ORDERED: Morphine 4 MG/ML Syringe IM ONE (03:31)
[2023-06-24] MEDS ORDERED: Ketorolac 60 MG/2 ML SDV IM ONE (03:32)
[2023-06-24 04:21] VITALS: BP 132/77; PULSE 74
== END 2023-06-24 04:10 | disposition home or self-care (01) ==
LOC: JD.ED 01:58
DX: K04.7 Periapical abscess without sinus (principal); J45.909 Unspecified asthma, uncomplicated; K21.9 Gastro-esophageal reflux disease without esophagitis; E66.9 Obesity, unspecified; Z68.41 Body mass index [BMI] 40.0-44.9, adult; Z79.899 Other long term (current) drug therapy
CPT/HCPCS: 96372; 99282; J1885; J2270

== ENCOUNTER 2024-06-17 23:40 | Emergency (ER) | payer BC ==
[2024-06-18 00:19] LABS: APPEARANCE,URINE CLOUDY (Clear); BILIRUBIN,URINE NEGATIVE (Negative); COLOR,URINE YELLOW (Yellow); GLUCOSE,URINE NEGATIVE (Negative); KETONES,URINE TRACE (Negative); LEUKOCYTE ESTERASE,URINE NEGATIVE (Negative); NITRITE,URINE NEGATIVE (Negative); OCCULT BLOOD,URINE 1+ (Negative); PROTEIN,URINE 1+ (Negative); UROBILINOGEN,URINE 0.2 (0.2-1.0)
[2024-06-18] MEDS: Ketorolac 15 MG/ML SDV IVPUSH ONE (00:44)
[2024-06-18] MEDS: Sodium Chloride 0.9% 1,000 ML IV ONE (00:44)
[2024-06-18] MEDS: Sodium Chloride 0.9% 10 ML Syringe FLUSH PRN (00:45)
[2024-06-18 00:50] LABS: BASOPHILS ABSOLUTE AUTO 0.1 K/mm3 (0.0-0.2); BASOPHILS PERCENT AUTO 0.5 % (0.0-1.0); EOSINOPHILS ABSOLUTE AUTO 0.3 K/mm3 (0.0-0.4); EOSINOPHILS PERCENT AUTO 2.5 % (0.0-6.0); HEMATOCRIT 43.8 % (42.0-52.0); HEMOGLOBIN 15.1 gm/dl (14.0-18.0); IMMATURE GRAN ABSOLUTE AUTO 0.04 K/mm3 (0.00-0.05); IMMATURE GRAN PERCENT AUTO 0.4 % (0.0-0.4); LYMPHOCYTES ABSOLUTE AUTO 2.7 K/mm3 (1.0-4.8); MEAN CORPUSCULAR HEMOGLOBIN 29.8 pg (28.0-32.0); MEAN CORPUSCULAR HGB CONC 34.5 g/dl (32.0-36.0); MEAN CORPUSCULAR VOLUME 86.6 fl (83.0-99.0); MEAN PLATELET VOLUME 11.7 fl (9.4-12.4); MONOCYTES ABSOLUTE AUTO 0.9 K/mm3 (0.0-0.8); MONOCYTES PERCENT AUTO 7.9 % (0.0-8.0); NEUTROPHILS ABSOLUTE AUTO 6.9 K/mm3 (1.8-7.7); NEUTROPHILS PERCENT AUTO 63.7 % (41.0-71.0); PLATELET COUNT,PLT 218 K/mm3 (150-400); RED BLOOD CELL COUNT 5.06 M/mm3 (4.52-5.90); WHITE BLOOD CELL COUNT,WBC 10.87 K/mm3 (3.9-11.3)
[2024-06-18 00:58] LABS: BACTERIA,URINE FEW /hpf (FEW); EPITHELIAL CELLS,URINE 0-5 /hpf (0-5); WBC,URINE 0-5 /hpf (0-5)
[2024-06-18 00:59] LABS: AMORPHOUS SEDIMENT,URINE MODERATE /hpf (NOT SEEN); MUCUS,URINE NOT SEEN /hpf (FEW)
[2024-06-18 01:14] LABS: ALBUMIN 3.5 g/dl (3.4-5.0); ANION GAP 11.8 (5-15); BILIRUBIN TOTAL 0.4 mg/dL (0.2-1.0); BUN/CREATININE RATIO 8.3 (14-18); CREATININE 1.2 mg/dL (0.7-1.3); EST CRCL DRUG DOSING (CG) 81.11 mL/min; POTASSIUM,K 3.8 mEq/L (3.5-5.1)
[2024-06-18] MEDS: Morphine 4 MG/ML Syringe IVPUSH ONE (01:54)
[2024-06-18 02:08] VITALS: BP 148/88; PULSE 87
== END 2024-06-18 02:28 | disposition home or self-care (01) ==
LOC: JD.ED 23:40
DX: N13.2 Hydronephrosis with renal and ureteral calculous obstruction (principal); J45.909 Unspecified asthma, uncomplicated; K21.9 Gastro-esophageal reflux disease without esophagitis; E66.9 Obesity, unspecified; F17.210 Nicotine dependence, cigarettes, uncomplicated; Z90.49 Acquired absence of other specified parts of digestive tract; Z79.899 Other long term (current) drug therapy; Z68.41 Body mass index [BMI] 40.0-44.9, adult
CPT/HCPCS: 36415; 74176; 80053; 81001; 85025; 96374; 96375; 99284; J1885; J2270; J3490; J7030

== ENCOUNTER 2024-06-18 13:37 | Emergency (ER) | payer BC ==
[2024-06-18 14:11] VITALS: PULSE 82
[2024-06-18 15:27] LABS: BASOPHILS ABSOLUTE AUTO 0.1 K/mm3 (0.0-0.2); BASOPHILS PERCENT AUTO 0.5 % (0.0-1.0); EOSINOPHILS ABSOLUTE AUTO 0.2 K/mm3 (0.0-0.4); EOSINOPHILS PERCENT AUTO 1.7 % (0.0-6.0); HEMATOCRIT 45.1 % (42.0-52.0); HEMOGLOBIN 15.5 gm/dl (14.0-18.0); IMMATURE GRAN ABSOLUTE AUTO 0.03 K/mm3 (0.00-0.05); IMMATURE GRAN PERCENT AUTO 0.3 % (0.0-0.4); LYMPHOCYTES ABSOLUTE AUTO 1.9 K/mm3 (1.0-4.8); LYMPHOCYTES PERCENT AUTO 17.9 % (24.0-44.0); MEAN CORPUSCULAR HEMOGLOBIN 29.6 pg (28.0-32.0); MEAN CORPUSCULAR HGB CONC 34.4 g/dl (32.0-36.0); MEAN CORPUSCULAR VOLUME 86.2 fl (83.0-99.0); MEAN PLATELET VOLUME 11.3 fl (9.4-12.4); MONOCYTES ABSOLUTE AUTO 0.8 K/mm3 (0.0-0.8); MONOCYTES PERCENT AUTO 7.8 % (0.0-8.0); NEUTROPHILS ABSOLUTE AUTO 7.6 K/mm3 (1.8-7.7); NEUTROPHILS PERCENT AUTO 71.8 % (41.0-71.0); PLATELET COUNT,PLT 225 K/mm3 (150-400); RED BLOOD CELL COUNT 5.23 M/mm3 (4.52-5.90); WHITE BLOOD CELL COUNT,WBC 10.51 K/mm3 (3.9-11.3)
[2024-06-18] MEDS: Ketorolac 30 MG/ML SDV IVPUSH ONE (15:39)
[2024-06-18] MEDS: Tamsulosin 0.4 MG Cap.ER PO ONE (15:42)
[2024-06-18] MEDS: Ketorolac 60 MG/2 ML SDV IM ONE (15:42)
[2024-06-18 16:01] LABS: ALBUMIN 3.4 g/dl (3.4-5.0); ANION GAP 11.4 (5-15); BILIRUBIN TOTAL 0.7 mg/dL (0.2-1.0); BUN/CREATININE RATIO 11.1 (14-18); CREATININE 0.9 mg/dL (0.7-1.3); EST CRCL DRUG DOSING (CG) 108.15 mL/min; POTASSIUM,K 4.4 mEq/L (3.5-5.1); PROTEIN TOTAL,TP 6.9 g/dl (6.4-8.2)
[2024-06-18] MEDS: Sodium Chloride 0.9% 1,000 ML IV SCH (16:53)
[2024-06-18 16:54] LABS: APPEARANCE,URINE CLEAR (Clear); BILIRUBIN,URINE NEGATIVE (Negative); COLOR,URINE YELLOW (Yellow); GLUCOSE,URINE NEGATIVE (Negative); KETONES,URINE NEGATIVE (Negative); LEUKOCYTE ESTERASE,URINE 1+ (Negative); NITRITE,URINE NEGATIVE (Negative); OCCULT BLOOD,URINE 1+ (Negative); PROTEIN,URINE NEGATIVE (Negative); UROBILINOGEN,URINE 0.2 (0.2-1.0)
[2024-06-18 16:55] LABS: RBC,URINE 30-40 /hpf (0-5); SQUAMOUS EPITHELIAL CELLS,UR 0-5 /hpf (0-5)
[2024-06-18 16:56] LABS: BACTERIA,URINE FEW /hpf (FEW); MUCUS,URINE FEW /hpf (FEW)
[2024-06-18 17:53] VITALS: BP 132/87
== END 2024-06-18 17:50 | disposition home or self-care (01) ==
LOC: JD.ED 13:37
DX: N13.2 Hydronephrosis with renal and ureteral calculous obstruction (principal); K21.9 Gastro-esophageal reflux disease without esophagitis; E66.9 Obesity, unspecified; Z79.899 Other long term (current) drug therapy; Z68.41 Body mass index [BMI] 40.0-44.9, adult
CPT/HCPCS: 36415; 74176; 74176-26; 80053; 81001; 85025; 87086; 96372; 99284; A9270-GY; J1885